=== PATIENT | female | born 1935 | race Caucasian/White ===

== ENCOUNTER 2017-05-28 10:21 | Inpatient (IN) | payer OTHER ==
[~2017-05-28] VITALS: Ht 165.1 cm; Wt 66.8 kg
[~2017-05-28 10:21] MED LIST: CIPRO250 MG PO; CIPROFLOXACIN250 M2 PO; HYDROCODONE BIT1 T11 PO; TRIAMTERENE AND1 TAB PO
[2017-05-28 10:34] VITALS: BP 115/65
[2017-05-28 11:01] LABS: BASO % 0.2 % (0.0-1.0); EOS % 0.2 % (1.0-4.0); HEMATOCRIT 29.5 % (37.0-47.0); HEMOGLOBIN 9.3 g/dl (12.0-16.0); LYMPH # 1.4 10*3/uL (1.3-4.4); LYMPH % 26.8 % (27.0-41.0); MEAN CELL VOLUME 103.5 fl (81.0-99.0); MEAN CORPUSCULAR HGB 32.6 pg (27.0-31.0); MEAN CORPUSCULAR HGB CONC 31.5 g/dl (33.0-37.0); MEAN PLATELET VOLUME 10.8 fl (9.6-12.3); MONO # 0.4 10*3/uL (0.1-1.0); MONO % 7.9 % (3.0-9.0); NEUT # 3.4 10*3/uL (2.3-7.9); NEUT % 64.3 % (47.0-73.0); NUCLEATED RED BLOOD CELL 0.6 % (0.0-0.0); PLATELET COUNT AUTOMATED 314 10*3/uL (130-400); RED BLOOD COUNT 2.85 10*6/uL (4.10-5.10); RED CELL DISTRI WIDTH 19.7 % (0-14.5); WHITE BLOOD COUNT 5.3 10*3/uL (4.8-10.8)
[2017-05-28 11:17] LABS: ALBUMIN 3.7 gm/dl (3.1-4.5); CREATININE 1.27 mg/dL (0.55-1.02); TOTAL PROTEIN 6.9 gm/dL (6.4-8.2)
--- NOTE | 2017-05-28 12:18 | NUR ---
A 82, admitted to 5E, under the services of MACO Suresh DO with a diagnosis of CELLULITIS. Chief complaint is EXTERMITIY INJURY. Patient arrived via ambulatory from ER. Monitor applied. Initial assessment completed. Vital signs taken and recorded. MACO SURESH DO notified of admission to the unit. Orders received. See assessment for past medical history, medications and allergies. Patient and/or family oriented to unit. visitation policy reviewed. Clothing/patient valuable form completed. DINESH MICHELLE L
[2017-05-28 12:27] VITALS: BP 154/67
--- NOTE | 2017-05-28 13:07 | NUR ---
PT REQUESTING FLU SHOT DURING THIS STAY, RESIDENT NOTIFIED THAT PT HAS ARRIVED TO FLOOR AND MEDICATIONS REVIEWED WITH PT, ALSO NOTIFIED OF WOUND TO LEFT LOWER EXTREMITY
[2017-05-28 16:00] VITALS: BP 118/44
[2017-05-28 20:00] VITALS: BP 141/69
--- NOTE | 2017-05-28 21:15 | NUR ---
PT ASSESSED, ALERT ORIENTED AND PLEASANT. VITALS WNL. RESPIRATIONS EASY AND UNLABORED. NO S/S OF DISTRESS AT THIS TIME. PT DENIES PAIN. IV SITE PATENT, DRESSING DRY AND IN TACT. DRESSING TO LLE IN DRY AND IN TACT AT THIS TIME. PT CURRENTLY LYING IN BED, CALL LIGHT IN REACH.
[2017-05-29] VITALS: BP 139/55
--- NOTE | 2017-05-29 | NUR ---
PT IV ANTIBIOTIC RUNNING PER ORDER. IV SITE PATENT, FLUSHING WITH EASE. DRESSING DRY AND IN TACT. NO COMPLAINTS VOICED BY PT AT THIS TIME.
--- NOTE | 2017-05-29 02:05 | NUR ---
24 HR chart check completed.
--- NOTE | 2017-05-29 04:31 | NUR ---
PT RESTING IN BED, NOT AWAKENED PER POLICY. RESPIRATIONS EASY AND UNLABORED. NO S/S OF DISTRESS.
--- NOTE | 2017-05-29 05:58 | NUR ---
PT C/O NAUSEA. ZOFRAN ADMINISTERED AT THIS TIME. VITALS OBTAINED AND WNL. WILL MONITOR FOR EFFECTIVENESS OF MEDICATION. NO OTHER COMPLAINTS VOICED.
[2017-05-29 06:40] LABS: BASO % 0.2 % (0.0-1.0); EOS % 0.7 % (1.0-4.0); HEMATOCRIT 24.2 % (37.0-47.0); HEMOGLOBIN 7.7 g/dl (12.0-16.0); LYMPH % 45.1 % (27.0-41.0); MEAN CELL VOLUME 101.7 fl (81.0-99.0); MEAN CORPUSCULAR HGB 32.4 pg (27.0-31.0); MEAN CORPUSCULAR HGB CONC 31.8 g/dl (33.0-37.0); MONO # 0.4 10*3/uL (0.1-1.0); NEUT % 44.8 % (47.0-73.0); PLATELET COUNT AUTOMATED 260 10*3/uL (130-400); RED BLOOD COUNT 2.38 10*6/uL (4.10-5.10); RED CELL DISTRI WIDTH 19.7 % (0-14.5); WHITE BLOOD COUNT 4.4 10*3/uL (4.8-10.8)
--- NOTE | 2017-05-29 06:44 | NUR ---
ZOFRAN EFFECTIVE PER PT. PT RESTING IN BED AT THIS TIME. RESPIRATIONS EASY AND UNLABORED. NO S/S OF DISTRESS.
[2017-05-29 07:13] LABS: ALBUMIN 3.1 gm/dl (3.1-4.5); ALKALINE PHOSPHATASE 94 U/L (45-117); BUN 23 mg/dl (7-24); CHLORIDE 111 mmol/L (98-107); CREATININE 1.04 mg/dL (0.55-1.02); POTASSIUM 4.1 mmol/L (3.5-5.1); SGOT/AST 12 IU/L (3-35); SGPT/ALT 14 U/L (12-78); SODIUM 143 mmol/L (136-145); TOTAL PROTEIN 5.6 gm/dL (6.4-8.2)
--- NOTE | 2017-05-29 07:30 | NUR ---
NOTIFIED DR NUÑEZ OF PT H/H AND SUDDEN DROP OVERNIGHT, ASKED TO SEE IF WE COULD REDRAW H/H. ORDER RECIEVED.
[2017-05-29 08:00] VITALS: BP 128/63
--- NOTE | 2017-05-29 08:16 | NUR ---
NOTIFIED DR NELSON OF NEW RESULTS HGB 8.1 ON RECHECK. PREVIOUS HGB AT 0533 WAS 7.7. NO NEW ORDERS.
[2017-05-29 08:31] LABS: HEMATOCRIT 26.1 % (37.0-47.0); HEMOGLOBIN 8.1 g/dl (12.0-16.0)
[2017-05-29 12:00] VITALS: BP 136/51
--- NOTE | 2017-05-29 15:07 | NUR ---
RESTING IN BED WATCHING TV, VOICES NO NEEDS. RESPS EASY ON RA. CALL LIGHT IN REACH.
[2017-05-29 16:06] VITALS: BP 146/55
--- NOTE | 2017-05-29 18:35 | NUR ---
DRESSING CHANGE COMPLETED TO RIGHT PARSON PER PHYSICIAN ORDER.
--- NOTE | 2017-05-29 18:38 | NUR ---
DRESSING CHANGE TO LEFT PARSON COMPLETED PER PHYSICIAN ORDER. PT TOLERATED WELL. VOICES NO C/O. CALL LIGHT IN REACH.
[2017-05-29 20:14] VITALS: BP 125/46
--- NOTE | 2017-05-29 23:39 | NUR ---
MEDICATED WITH PRN NORCO FOR C/O LEFT LEG PAIN. RATES 02/24
[2017-05-30] VITALS: BP 151/57
--- NOTE | 2017-05-30 01:30 | NUR ---
EARLIER NORCO APPEARS TO BE EFFECTIVE, PT SLEEPING. RESP EASY AND NONLABORED ON ROOM AIR. NO DISTRESS NOTED. CALL LIGHT IN REACH, WILL CONTINUE TO MONITOR.
[2017-05-30 04:00] VITALS: BP 148/60
[2017-05-30 06:42] LABS: BASO % 0.2 % (0.0-1.0); EOS % 0.8 % (1.0-4.0); HEMATOCRIT 25.4 % (37.0-47.0); LYMPH # 1.9 10*3/uL (1.3-4.4); MEAN CELL VOLUME 104.1 fl (81.0-99.0); MEAN CORPUSCULAR HGB 32.8 pg (27.0-31.0); MEAN CORPUSCULAR HGB CONC 31.5 g/dl (33.0-37.0); MEAN PLATELET VOLUME 10.4 fl (9.6-12.3); MONO # 0.5 10*3/uL (0.1-1.0); MONO % 9.7 % (3.0-9.0); NEUT # 2.4 10*3/uL (2.3-7.9); NEUT % 49.5 % (47.0-73.0); NUCLEATED RED BLOOD CELL 0.6 % (0.0-0.0); PLATELET COUNT AUTOMATED 256 10*3/uL (130-400); RED BLOOD COUNT 2.44 10*6/uL (4.10-5.10); RED CELL DISTRI WIDTH 19.7 % (0-14.5); WHITE BLOOD COUNT 4.9 10*3/uL (4.8-10.8)
[2017-05-30 06:58] LABS: CREATININE 1.06 mg/dL (0.55-1.02); POTASSIUM 4.7 mmol/L (3.5-5.1)
--- NOTE | 2017-05-30 07:31 | NUR ---
24 HR chart check completed.
[2017-05-30 08:00] VITALS: BP 124/72
--- NOTE | 2017-05-30 09:00 | NUR ---
Shop Hand in to talk to patient. Patient states lives at home with alone. There are no steps in the home. Physician: one that took dr ruiz [facility] Pharmacy: [facility] services: none Patient's level of ADLs: INDEPENDENT Patient has working utilities: all working DME: none Follow-up physician's appointment after d/c: will be made by hospitalist nurse director upon discharge Does patient want to access PORTAL?: no Discharge plan discussed with patient, patient lives at home alone, states she is independent in adl and ambulation, patient states she doesn't drive anymore, but her son and granddaughte take her where ever she needs to go, patient states she will be going back home and denies any home needs. JANES GARCIA
[2017-05-30 12:00] VITALS: BP 133/54
--- NOTE | 2017-05-30 13:00 | NUR ---
NOTIFIED DR ZUNIGA OF NEW CONSULT FOR WOUND TO LEFT LOWER PARSON WHILE HE ROUNDED ON THE FLOOR.
--- NOTE | 2017-05-30 13:26 | NUR ---
IRAISAMARI MCFADDEN Mikki [id number] Please refer to the physician's history and physical for past medical history, comorbid conditions, and allergies. Diagnosis: CELLULITIS Juni Score: 23,LOW OR NO RISK WOUND DESCRIPTIONS: Location of the wound: Left lower leg Type of wound: traumatic Thickness: Full Size: 2.2cm x 2.5cm x 0.2cm Tunneling: none Undermining: none Sinus Tract: none Presence of Exudate: SeroSanguineous Amount: Moderate Color: Yellow, Black Odor: Strong Periwound Skin Appearance: Erythema Wound edges: approxiamted Pain (associated with wound): patient stated the area in tender to touch at time of assessment How does patient state this happened? Patient stated she hit her leg off of her breading machine tender door while it was open Surface the patient is resting on: Isoflex SKIN PREVENTION RECOMMENDATION: 1. Pressure redistribution support surface as appropriate 2. Elevate heels 3. Remove boots/TEDS every shift and reapply 4. Head of bed 30 degrees as tolerated 5. Assess nutrition and hydration 6. Manage moisture 7. Avoid the use of containment devices while in bed 8. Use absorptive products on surfaces limit layers of linens on bed 9. Turn and reposition every 1-2 hours in bed and every 1 hour in chair as tolerated 10. Weight shifts every 15 minutes while up in chair 11. Offloading with pillows or device to keep heels elevated off bed 12. Monitor skin at least every shift 13. Inspect under medical devices twice a day WOUND TREATMENT RECOMMENDATIONS: Consult surgery for possible debridement. Cleanse wound with NS then apply sureprep to periwound. Apply therahoney then an optifoam gentle. Change dressing daily and PRN if soiled.
[2017-05-30] MEDS ORDERED: CLINDAMYCIN HC300 MG PO (15:03)
[2017-05-30 16:00] VITALS: BP 156/57
--- NOTE | 2017-05-30 16:30 | NUR ---
D/C PHOTOS COMPLETED. DRESSING CHANGE COMPLETED PER DR CHAU ORDER. PT TOLERATED WELL. CALL LIGHT IN REACH.
--- NOTE | 2017-05-30 20:25 | NUR ---
PT DISCHARGED OFF FLOOR WITH FAMILY. PT STABLE. HEP LOCK REMOVED.
== END 2017-05-30 20:25 | disposition home or self-care (01) | DRG 603 ==
LOC: ED 10:21 → 5E 11:36 → EDHOLD 11:36 → 5E 12:01
PROVIDERS: Family Medicine; Student in an Organized Health Care Education/Training Program; ADMIT Internal Medicine
DX: L03.116 Cellulitis of left lower limb (principal); G35 Multiple sclerosis; D63.1 Anemia in chronic kidney disease; E83.51 Hypocalcemia; N18.3 Chronic kidney disease, stage 3 (moderate); S81.812A Laceration without foreign body, left lower leg, initial encounter; D75.89 Other specified diseases of blood and blood-forming organs; R74.8 Abnormal levels of other serum enzymes; X58.XXXA Exposure to other specified factors, initial encounter; Y93.01 Activity, walking, marching and hiking; Z86.73 Personal history of transient ischemic attack (TIA), and cerebral infarction without residual deficits; Z90.49 Acquired absence of other specified parts of digestive tract; Z90.710 Acquired absence of both cervix and uterus; Z84.89 Family history of other specified conditions; Z82.49 Family history of ischemic heart disease and other diseases of the circulatory system; Z88.2 Allergy status to sulfonamides; Z88.0 Allergy status to penicillin; Y92.098 Other place in other non-institutional residence as the place of occurrence of the external cause; Y99.8 Other external cause status

== ENCOUNTER → 2017-06-07 | Outpatient (CLI) | payer OTHER ==
[~2017-06-07] MED LIST changes: +CLINDAMYCIN HC300 MG PO
== END | disposition home or self-care (01) ==
LOC: WOUNDCARE 01:13
DX: S81.802A Unspecified open wound, left lower leg, initial encounter (principal); Z90.710 Acquired absence of both cervix and uterus; X58.XXXA Exposure to other specified factors, initial encounter; Y93.89 Activity, other specified; Y92.89 Other specified places as the place of occurrence of the external cause; Y99.8 Other external cause status

== ENCOUNTER → 2017-06-14 | Outpatient (CLI) | payer OTHER | END | disposition home or self-care (01) | LOC: WOUNDCARE 11:37 | DX: S81.802D Unspecified open wound, left lower leg, subsequent encounter (principal); Z90.710 Acquired absence of both cervix and uterus; X58.XXXD Exposure to other specified factors, subsequent encounter ==

== ENCOUNTER → 2017-06-21 | Outpatient (CLI) | payer OTHER | END | disposition home or self-care (01) | LOC: WOUNDCARE 04:01 | DX: S81.802D Unspecified open wound, left lower leg, subsequent encounter (principal); Z90.710 Acquired absence of both cervix and uterus; X58.XXXD Exposure to other specified factors, subsequent encounter ==

== ENCOUNTER → 2017-06-28 | Outpatient (CLI) | payer OTHER | END | disposition home or self-care (01) | LOC: WOUNDCARE 00:58 | DX: S81.802D Unspecified open wound, left lower leg, subsequent encounter (principal); Z90.710 Acquired absence of both cervix and uterus; X58.XXXD Exposure to other specified factors, subsequent encounter ==

== ENCOUNTER → 2017-07-05 | Outpatient (CLI) | payer OTHER | END | disposition home or self-care (01) | LOC: WOUNDCARE 02:13 | DX: S81.802D Unspecified open wound, left lower leg, subsequent encounter (principal); Z90.710 Acquired absence of both cervix and uterus; X58.XXXD Exposure to other specified factors, subsequent encounter ==

== ENCOUNTER 2017-10-23 20:25 | Emergency (ER) | payer OTHER ==
[~2017-10-23] VITALS: Ht 170.1 cm; Wt 65.8 kg
== END 2017-10-23 22:06 | disposition home or self-care (01) ==
LOC: ED 20:25
DX: M43.16 Spondylolisthesis, lumbar region (principal); M25.551 Pain in right hip; N18.9 Chronic kidney disease, unspecified; Z86.73 Personal history of transient ischemic attack (TIA), and cerebral infarction without residual deficits; Z98.890 Other specified postprocedural states; Z90.49 Acquired absence of other specified parts of digestive tract; Z88.0 Allergy status to penicillin; Z90.710 Acquired absence of both cervix and uterus; Z98.42 Cataract extraction status, left eye; Z98.41 Cataract extraction status, right eye; Z88.2 Allergy status to sulfonamides

== ENCOUNTER → 2017-12-06 | Outpatient (CLI) | payer OTHER ==
[2017-12-06 14:55] LABS: HEMATOCRIT 28.7 % (37.0-47.0); MEAN CORPUSCULAR HGB 32.6 pg (27.0-31.0); MEAN CORPUSCULAR HGB CONC 31.4 g/dl (33.0-37.0); MEAN PLATELET VOLUME 10.2 fl (9.6-12.3); NUCLEATED RED BLOOD CELL 0.7 % (0.0-0.0); PLATELET COUNT AUTOMATED 418 10*3/uL (130-400); RED BLOOD COUNT 2.76 10*6/uL (4.10-5.10); RED CELL DISTRI WIDTH 19.6 % (0-14.5); WHITE BLOOD COUNT 4.4 10*3/uL (4.8-10.8)
[2017-12-06 15:24] LABS: OVALOCYTES FEW; POLYCHROMASIA SLIGHT; TOTAL CELLS COUNTED 100 #CELLS
[2017-12-06 15:25] LABS: BURR CELLS FEW; SCHISTOCYTES FEW
[2017-12-06 15:27] LABS: PLATELET SUFFICIENCY HIGH (NORMAL)
== END | disposition home or self-care (01) ==
LOC: LAB 13:51
PROVIDERS: Nurse Practitioner Primary Care
DX: D72.9 Disorder of white blood cells, unspecified (principal); D72.810 Lymphocytopenia; D53.9 Nutritional anemia, unspecified

== ENCOUNTER → 2018-07-14 | Outpatient (CLI) | payer OTHER ==
[2018-07-14 10:28] LABS: BASO % 0.2 % (0.0-1.0); EOS % 0.2 % (1.0-4.0); HEMATOCRIT 34.5 % (37.0-47.0); HEMOGLOBIN 10.9 g/dl (12.0-16.0); LYMPH # 1.1 10*3/uL (1.3-4.4); LYMPH % 19.2 % (27.0-41.0); MEAN CELL VOLUME 104.5 fl (81.0-99.0); MEAN CORPUSCULAR HGB CONC 31.6 g/dl (33.0-37.0); MEAN PLATELET VOLUME 10.5 fl (9.6-12.3); MONO # 0.3 10*3/uL (0.1-1.0); MONO % 4.9 % (3.0-9.0); NEUT # 4.5 10*3/uL (2.3-7.9); PLATELET COUNT AUTOMATED 296 10*3/uL (130-400); RED CELL DISTRI WIDTH 19.3 % (0-14.5); WHITE BLOOD COUNT 5.9 10*3/uL (4.8-10.8)
== END | disposition home or self-care (01) ==
LOC: LAB 09:49
PROVIDERS: Internal Medicine Hematology & Oncology
DX: D46.9 Myelodysplastic syndrome, unspecified (principal); D63.1 Anemia in chronic kidney disease